=== PATIENT | female | born 1990 | race Caucasian/White ===

== ENCOUNTER 2024-08-18 08:42 | Emergency (ER) | payer OTHER ==
[~2024-08-18] VITALS: Ht 175.3 cm; Wt 108.0 kg
[2024-08-18] MEDS ORDERED: ALDACTONE25 MG PO (09:31)
[2024-08-18] MEDS ORDERED: METFORMIN HCL500 MG (09:31)
[2024-08-18] MEDS ORDERED: DEXAMETHASONE SODIUM PHOSPHATE 4 MG/ML VIAL IM STA (10:46)
== END 2024-08-18 14:22 | disposition home or self-care (01) ==
LOC: ER 08:44
DX: S01.82XA Laceration with foreign body of other part of head, initial encounter (principal); W01.0XXA Fall on same level from slipping, tripping and stumbling without subsequent striking against object, initial encounter; Y93.89 Activity, other specified; Y92.012 Bathroom of single-family (private) house as the place of occurrence of the external cause; Z88.6 Allergy status to analgesic agent; E11.9 Type 2 diabetes mellitus without complications; Z79.84 Long term (current) use of oral hypoglycemic drugs